=== PATIENT | female | born 1980 | race African-American/Black ===

== ENCOUNTER 2017-12-18 12:23 | Emergency (ER) | payer SELFPAY ==
[~2017-12-18] VITALS: Ht 170.2 cm; Wt 99.0 kg
[2017-12-18 13:10] VITALS: BP 123/86
[2017-12-18] MEDS: KETOROLAC 60 MG/2 ML VIAL IM ONE (15:18)
[2017-12-18 16:00] VITALS: BP 120/84
== END 2017-12-18 16:00 | disposition home or self-care (01) ==
LOC: MED 12:23 → EDBD 12:23 → MED 16:00
DX: M54.5 Low back pain (principal)
CPT/HCPCS: 81002; 81025; 96372; 99283; J1885

== ENCOUNTER 2019-01-01 18:03 | Emergency (ER) | payer SELFPAY ==
[~2019-01-01] VITALS: Ht 170.2 cm; Wt 97.5 kg
[2019-01-01 18:05] VITALS: BP 132/83
--- NOTE | 2019-01-01 18:13 | NUR ---
PT AMBULATED TO BED 7.
--- NOTE | 2019-01-01 18:28 | NUR ---
38 Y/O FEMALE PRESENTED WITH C/C OF ABD PAIN ; N/V/D X2 DAYS. PER PATIENT ABD PAIN IS 8/10 WITH A CRAMPING FEELING RADIATING TO THE BACK. PER PT NKA. NO MEDICAL HX. NO MEDICATIONS ON REGULAR BASIS. LAST ORAL INTAKE YESTERDAY 2200 HOURS TOLERATED WELL. BOWEL SOUNDS NORMOACTIVE. FAMILY AT BEDSIDE. SIDE RAIL X1.
[2019-01-01] MEDS ORDERED: NACL 0.9% 1,000 ML IV ONE (18:35)
[2019-01-01] MEDS ORDERED: KETOROLAC 30 MG/ML VIAL IVP ONE (18:35)
[2019-01-01] MEDS ORDERED: ONDANSETRON 4 MG/2 ML VIAL IVP ONE ×2 (18:35→19:55)
--- NOTE | 2019-01-01 18:40 | NUR ---
PT TAKEN TO XRAY VIA WHEELCHAIR
--- NOTE | 2019-01-01 18:49 | NUR ---
PT RETURNED FROM XRAY VIA WHEELCHAIR
--- NOTE | 2019-01-01 18:57 | NUR ---
PT AMBULATED TO THE RESTROOM
--- NOTE | 2019-01-01 19:05 | NUR ---
TORADOL AND ZOFRAN ADMINISTERED IVP. BOLUS STARTED
[2019-01-01 19:11] LABS: BASOPHILS % (AUTO) 0.3 % (0.0-2.0); EOSINOPHILS % (AUTO) 0.2 % (0.0-4.0); HEMATOCRIT 41.6 % (36-48); HEMOGLOBIN 13.7 g/dL (12.0-16.0); LYMPHOCYTES # (AUTO) 0.4 K/uL (2.5-16.5); MEAN CORPUSCULAR HEMOGLOBIN 31 pg (27-31); MEAN CORPUSCULAR HGB CONC 33 g/dL (33-37); MEAN CORPUSCULAR VOLUME 94.5 fL (80-94); MONOCYTES # (AUTO) 0.5 K/uL (0.8-1.0); MONOCYTES % (AUTO) 6.8 % (1.7-9.3); NEUTROPHILS # (AUTO) 6.3 K/uL (1.8-7.7); NEUTROPHILS % (AUTO) 87.7 % (42.2-75.2); PLATELET COUNT (AUTO) 293 K/uL (140-450); RED BLOOD CELL COUNT(AUTO) 4.41 MIL/uL (4.20-5.40); WHITE BLOOD COUNT (AUTO) 7.2 K/uL (4.8-10.8)
--- NOTE | 2019-01-01 19:13 | NUR ---
REPORT GIVEN TO FLAKITA
[2019-01-01 19:26] LABS: ANION GAP 16.1 (8-16); CARBON DIOXIDE 24.2 mmol/L (21-32); CREATININE 0.8 mg/dL (0.6-1.3); POTASSIUM 3.3 mmol/L (3.5-5.1)
[2019-01-01 19:32] LABS: TOTAL BILIRUBIN 1.7 mg/dL (0.0-1.0)
--- NOTE | 2019-01-01 19:51 | NUR ---
Dr. Torres examining patient.
[2019-01-01] MEDS ORDERED: MORPHINE SULFATE 4 MG/ML SYR IVP ONE (19:55)
[2019-01-01 20:45] VITALS: BP 132/83
--- NOTE | 2019-01-01 20:45 | NUR ---
PT DISCHARGED WITH PAPERWORK. RX NORCO, ZOFRAN, IMODIUM, MOTRIN. EDUCATED PT REGARDING MEDICATIONS AND S/E. EDUCATED PT REGARDING D/C DIAGNOSIS AND INSTRUCTIONS. PT VERBALIZED UNDERSTANDING OF TEACHING. TOLD PT TO FOLLOW UP WITH PCP AND WHEN TO RETURN TO ED. PT STABLE CONDITION AND RELIEF OF PAIN. ALL QUESTIONS ANSWERED.
--- NOTE | 2019-01-07 13:52 | NUR ---
Late entry. Confirmed with RN that 1000ml 0.9 NS IV completed at 2005
== END 2019-01-01 20:45 | disposition home or self-care (01) ==
LOC: MED 18:03
DX: R10.13 Epigastric pain (principal); R11.2 Nausea with vomiting, unspecified; R19.7 Diarrhea, unspecified; Z98.890 Other specified postprocedural states
CPT/HCPCS: 36415; 74022; 80053; 81002; 81025; 83690; 85025; 96361; 96374; 96375; 96376; 99284; J1885; J2270; J2405; J7030

== ENCOUNTER 2019-01-31 22:25 | Emergency (ER) | payer SELFPAY ==
[~2019-01-31] VITALS: Ht 172.7 cm; Wt 97.5 kg
[2019-01-31 22:27] VITALS: BP 121/74
--- NOTE | 2019-01-31 22:30 | NUR ---
TO LOBBY A/W BED AMBULATORY
--- NOTE | 2019-02-01 00:03 | NUR ---
PT WHEELCHAIRED TO ER BED 10
--- NOTE | 2019-02-01 00:15 | NUR ---
39 YEAR OLD FEMALE COMPLAINS OF SHARP 10/10 LEFT KNEE PAIN X 11 HOURS. PATIENT STATES SHE WAS HOLDING HEAVY ITEMS WHILE GOING UP A STAIRCASE AND THEN FELL DOWN. PATIENT DENIES HITTING HEAD. VISIBLE SWELLING ON LEFT KNEE AND REDNESS NOTED. NO VISIBLE LACERATION. PATIENT ALERT AND ORIENTED, BREATHING EVEN AND UNLABORED, SKIN WARM AND DRY. BED IN LOWEST POSITION, LOCKED, BED RAIL UPX1.
--- NOTE | 2019-02-01 00:17 | NUR ---
PATIENTS LEFT KNEE ELEVATED, ICE PLACED ON KNEE
--- NOTE | 2019-02-01 00:56 | NUR ---
PATIENT ALERT AND ORIENTED, BREATHING EVEN AND UNLABORED, WILL CONTINUE TO MONITOR.
[2019-02-01] MEDS ORDERED: KETOROLAC 60 MG/2 ML VIAL IM ONE (01:00)
--- NOTE | 2019-02-01 01:03 | NUR ---
PT L KNEE WRAPPED WITH CHANA WRAP. +CSM
[2019-02-01 01:09] VITALS: BP 121/74
--- NOTE | 2019-02-01 01:10 | NUR ---
PT GIVEN INSTRUCTION ON PROPER USE OF CRUTCHES. CRUTCHES FITTED TO PT HEIGHT AND ARM LENGTH. PT GIVEN INSTRUCTION ON SITTING TO STANDING AND VICE VERSA, ASCENDING/ DESCENDING STAIRS, AND WALKING. PT DEMONSTRATED SAFE USE FOR APPROXIMATELY 40 FEET, PT STATED SHE FELT COMFORTABLE WITH USE.
--- NOTE | 2019-02-01 01:13 | NUR ---
DISCHARGE DONE BY DR DUMONT. Patient discharged with v/s stable. Written and verbal after care instructions ABOUT BRIEF KNEE SPRAIN given and explained. Patient alert, oriented and verbalized understanding of instructions. Ambulatory with steady gait. All questions addressed prior to discharge. ID band removed. Patient advised to follow up with PMD. Rx of NAPROSYN given. Patient educated on indication of medication including possible reaction and side effects. Opportunity to ask questions provided and answered.
== END 2019-02-01 01:09 | disposition home or self-care (01) ==
LOC: MED 22:25
DX: S83.92XA Sprain of unspecified site of left knee, initial encounter (principal); W10.9XXA Fall (on) (from) unspecified stairs and steps, initial encounter; Y93.89 Activity, other specified; Y92.89 Other specified places as the place of occurrence of the external cause; Y99.8 Other external cause status
CPT/HCPCS: 73562; 96372; 99283; J1885

== ENCOUNTER 2019-04-06 01:31 | Emergency (ER) | payer SELFPAY ==
[~2019-04-06] VITALS: Ht 170.2 cm; Wt 49.9 kg
--- NOTE | 2019-04-06 01:31 | NUR ---
ARABELLA WATSON ALS TO ER BED 06
[2019-04-06 01:40] VITALS: BP 154/92
--- NOTE | 2019-04-06 01:40 | NUR ---
PT BIBA D/T MULTIPLE LACERATIONS TO BI HANDS/ HEMATOMA TO LT FOREHEAD WITH SWELLING. NEURO CHECKS WNL. PERRL. A/O X4. NO FOREIGN BODY VISUALIZED IN LACERATIONS. HISTORY LIMITED DUE TO ETOH CONSUMPTION. PMH-NONE. MEDS TAKEN- NONE NKA.
[2019-04-06] MEDS ORDERED: LIDOCAINE/EPI 1% 1:100000 20 ML VIAL INJ ONE ×2 (02:34→02:35)
--- NOTE | 2019-04-06 02:45 | NUR ---
ERMD AT BEDSIDE AT THIS TIME.
[2019-04-06] MEDS ORDERED: BACITRACIN OINT 500 UNITS/GM PKT TP ONE ×2 (02:59→03:00)
--- NOTE | 2019-04-06 03:04 | NUR ---
TECH AT BEDSIDE DOING WOUND CARE TO BI HAND LACERATIONS.
--- NOTE | 2019-04-06 03:04 | NUR ---
PT WOUNDS ON R 5TH FINGER AND L 4TH FINGER COVERED WITH NON ADHERENT DRESSING AND WRAPPED WITH COFLEX AFTER BACITRACIN APPLIED. PER REQUEST FROM DR JONES, PT FINGERS SPLINTED WITH FROG SPLINTS.
--- NOTE | 2019-04-06 03:06 | NUR ---
Patient discharged with v/s stable. Written and verbal after care instructions given and explained. Patient alert, oriented and verbalized understanding of instructions. Ambulatory with steady gait. All questions addressed prior to discharge. ID band removed. Patient advised to follow up with PMD. Rx of NORCO, CIPRO given. Patient educated on indication of medication including possible reaction and side effects. Opportunity to ask questions provided and answered.
== END 2019-04-06 03:15 | disposition home or self-care (01) ==
LOC: MED 01:31
DX: S61.411A Laceration without foreign body of right hand, initial encounter (principal); S61.412A Laceration without foreign body of left hand, initial encounter; X58.XXXA Exposure to other specified factors, initial encounter; Y93.89 Activity, other specified; Y92.89 Other specified places as the place of occurrence of the external cause; Y99.8 Other external cause status
CPT/HCPCS: 12002; 99283; J2001

== ENCOUNTER 2019-04-07 00:46 | Emergency (ER) | payer SELFPAY ==
[~2019-04-07] VITALS: Ht 170.2 cm; Wt 95.3 kg
[2019-04-07 00:50] VITALS: BP 145/80
--- NOTE | 2019-04-07 00:50 | NUR ---
PT TO BED #4
--- NOTE | 2019-04-07 00:55 | NUR ---
PT 39 Y/O FEMALE BIB SELF FOR A RECHECK STICHES FOR L RING FINGER AND R PINKY FINGER. PT STATES SHE FEELS PAIN AT BOTH SITES 7/10 THROBING. CMS INTACT. CAP REFILL <3. NO REDNESS, SWELLING, OR DRAINAGE NOTED. SKIN IS WARM TO TOUCH. AFEBRILE. RESPIRATIONS ARE EVEN AND UNLABORED. SKIN IS WARM AND DRY TO TOUCH. PT BED LOCKED AND IN LOWEST POSITION. MEDHX: NONE ALLERGIES: NKA
--- NOTE | 2019-04-07 01:15 | NUR ---
DR. JONES AT BEDSIDE.
[2019-04-07] MEDS ORDERED: BACITRACIN OINT 500 UNITS/GM PKT TP STA (02:06)
--- NOTE | 2019-04-07 02:13 | NUR ---
BACITRACIN OINTMENT GIVEN TO KERI MARIE FOR WOUND CARE.
--- NOTE | 2019-04-07 02:20 | NUR ---
KERI MARIE PERFORMED WOUND DRESSING AT BEDSIDE. PT TOLERATED WELL. CMS INTACT CAP REFILL <3. PT STATES PAIN 5/10 BUT IS"TOLERABLE." PT DENIES NUBMNESS AND TINGLING.
[2019-04-07 02:30] VITALS: BP 138/82
--- NOTE | 2019-04-07 02:30 | NUR ---
Patient discharged with v/s stable. Written and verbal after care instructions given and explained. Patient verbalized understanding. Ambulatory with steady gait. All questions addressed prior to discharge. Advised to follow up with PMD.
== END 2019-04-07 02:30 | disposition home or self-care (01) ==
LOC: MED 00:46
DX: S61.412D Laceration without foreign body of left hand, subsequent encounter (principal); S61.411D Laceration without foreign body of right hand, subsequent encounter; X58.XXXD Exposure to other specified factors, subsequent encounter
CPT/HCPCS: 99283

== ENCOUNTER 2019-04-21 16:43 | Emergency (ER) | payer SELFPAY ==
[~2019-04-21] VITALS: Ht 172.7 cm; Wt 98.4 kg
--- NOTE | 2019-04-21 16:48 | NUR ---
Patient ambulated to bed 7
--- NOTE | 2019-04-21 16:50 | NUR ---
39 Y/O FEMALE ARRIVED AT ED FOR SUTURE REMOVAL, SUTURES WERE PLACED ON 04/06/2019. PT DENIES ANY OTHER ISSUES AT THIS TIME DENIES N/V/D; SKIN IS PINK/WARM/DRY; AAOX4 WITH EVEN AND STEADY GAIT;RR EVEN AND UNLABORED; PT DENIES ANY FEVER, CP, SOB, OR COUGH AT THIS TIME; PATIENT STATES PAIN OF 0/10 AT THIS TIME; VSS; PATIENT POSITIONED FOR COMFORT; HOB ELEVATED; BEDRAILS UP X1; BED DOWN AND WHEELS LOCKED. MEDICAL HX: DENIES NKA
[2019-04-21 16:51] VITALS: BP 130/72
--- NOTE | 2019-04-21 16:52 | NUR ---
SUTURE REMOVAL KIT PLACED AT BEDSIDE
--- NOTE | 2019-04-21 16:53 | NUR ---
AT BEDSIDE EXAMINING PT
[2019-04-21 17:06] VITALS: BP 130/72
== END 2019-04-21 17:06 | disposition home or self-care (01) ==
LOC: MED 16:43
DX: S61.216D Laceration without foreign body of right little finger without damage to nail, subsequent encounter (principal); S61.215D Laceration without foreign body of left ring finger without damage to nail, subsequent encounter; X58.XXXD Exposure to other specified factors, subsequent encounter
CPT/HCPCS: 99281

== ENCOUNTER 2021-06-23 07:47 | Emergency (ER) | payer OTHER ==
[~2021-06-23] VITALS: Ht 172.7 cm; Wt 88.1 kg
[2021-06-23 07:53] VITALS: BP 110/73
[2021-06-23] MEDS: ONDANSETRON 4 MG/2 ML VIAL IVP ONE (08:22)
[2021-06-23] MEDS: KETOROLAC 30 MG/ML VIAL IVP ONE (08:23)
[2021-06-23] MEDS: NACL 0.9% 1,000 ML IV ONE (08:24)
[2021-06-23 08:33] LABS: BASOPHILS % (AUTO) 0.5 % (0.0-2.0); EOSINOPHILS # (AUTO) 0.2 K/uL (0-0.4); EOSINOPHILS % (AUTO) 2.2 % (0.0-4.0); HEMATOCRIT 39.1 % (36-48); HEMOGLOBIN 13.1 g/dL (12.0-16.0); LYMPHOCYTES # (AUTO) 1.4 K/uL (2.5-16.5); LYMPHOCYTES % (AUTO) 14.2 % (20.5-51.1); MEAN CORPUSCULAR HEMOGLOBIN 30 pg (27-31); MEAN CORPUSCULAR HGB CONC 34 g/dL (33-37); MEAN CORPUSCULAR VOLUME 89.9 fL (80-94); MONOCYTES # (AUTO) 0.8 K/uL (0.8-1.0); MONOCYTES % (AUTO) 7.8 % (1.7-9.3); NEUTROPHILS # (AUTO) 7.6 K/uL (1.8-7.7); NEUTROPHILS % (AUTO) 75.3 % (42.2-75.2); PLATELET COUNT (AUTO) 289 K/uL (140-450); RED BLOOD CELL COUNT(AUTO) 4.35 MIL/uL (4.20-5.40); RED CELL DISTRIBUTION WIDTH 13.3 % (11.6-13.7); WHITE BLOOD COUNT (AUTO) 10.1 K/uL (4.8-10.8)
[2021-06-23 08:45] LABS: ALBUMIN 3.6 g/dL (3.4-5.0); ANION GAP 11.6 (8-16); CARBON DIOXIDE 24.1 mmol/L (21-32); CREATININE 0.7 mg/dL (0.6-1.3); POTASSIUM 3.7 mmol/L (3.5-5.1); TOTAL BILIRUBIN 0.8 mg/dL (0.0-1.0)
[2021-06-23] MEDS ORDERED: ACET-8386 PO (09:54)
[2021-06-23] MEDS ORDERED: ONDA-188 PO (09:54)
[2021-06-23 10:03] VITALS: BP 110/73
== END 2021-06-23 10:04 | disposition home or self-care (01) ==
LOC: MED 07:47
DX: K80.20 Calculus of gallbladder without cholecystitis without obstruction (principal); Z98.890 Other specified postprocedural states; Z79.899 Other long term (current) drug therapy; Z79.891 Long term (current) use of opiate analgesic
CPT/HCPCS: 36415; 76705; 80053; 81002; 81025; 83690; 85025; 96361; 96374; 96375; 99284; J1885; J2405; J7030; Q0092

== ENCOUNTER 2021-09-26 18:50 | Emergency (ER) | payer OTHER ==
[~2021-09-26] VITALS: Ht 170.2 cm; Wt 84.4 kg
[~2021-09-26 18:50] MED LIST: ACET-8386 PO; ONDA-188 PO
[2021-09-26 18:55] VITALS: BP 126/72
--- NOTE | 2021-09-26 19:00 | NUR ---
DENA. HANDED ON URINE CUP.
[2021-09-26] MEDS ORDERED: MORPHINE SULFATE 4 MG/ML SYR IVP ONE ×2 (19:10→21:10)
[2021-09-26] MEDS ORDERED: NACL 0.9% 1,000 ML IV ONE (19:10)
[2021-09-26] MEDS ORDERED: ONDANSETRON 4 MG/2 ML VIAL IVP ONE (19:10)
[2021-09-26 19:32] LABS: BASOPHILS % (AUTO) 0.3 % (0.0-2.0); EOSINOPHILS # (AUTO) 0.2 K/uL (0-0.4); EOSINOPHILS % (AUTO) 1.5 % (0.0-4.0); HEMATOCRIT 36.8 % (36-48); HEMOGLOBIN 12.3 g/dL (12.0-16.0); LYMPHOCYTES # (AUTO) 1.4 K/uL (2.5-16.5); LYMPHOCYTES % (AUTO) 13.7 % (20.5-51.1); MEAN CORPUSCULAR HEMOGLOBIN 31 pg (27-31); MEAN CORPUSCULAR HGB CONC 34 g/dL (33-37); MEAN CORPUSCULAR VOLUME 91.1 fL (80-94); MONOCYTES # (AUTO) 0.9 K/uL (0.8-1.0); MONOCYTES % (AUTO) 8.7 % (1.7-9.3); NEUTROPHILS # (AUTO) 7.8 K/uL (1.8-7.7); NEUTROPHILS % (AUTO) 75.8 % (42.2-75.2); PLATELET COUNT (AUTO) 327 K/uL (140-450); RED BLOOD CELL COUNT(AUTO) 4.04 MIL/uL (4.20-5.40); RED CELL DISTRIBUTION WIDTH 13.9 % (11.6-13.7); WHITE BLOOD COUNT (AUTO) 10.3 K/uL (4.8-10.8)
--- NOTE | 2021-09-26 19:40 | NUR ---
41 Y/O FEMALE BIBS FROM HOME, C/O DIFFUSE UPPER ABD PAIN X3 DAYS. PT STATES SHE HAS THE PAIN OFTEN BUT USUALLY ONLY LASTS 30 MINUTES. THIS TIME IT HAS BEEN 3 DAYS OF CONSTANT, SHARP, RADIATING TO BACK, 10/10 PAIN. PT HAS LOSS OF APETITE AND N/V. SKIN IS PINK/WARM/DRY. A/OX4, UNLABORED BREATHING, AMBULATORY. HX: GALLSTONES NKA MEDS: CONTROL
--- NOTE | 2021-09-26 19:59 | NUR ---
ultrasound at bedside
[2021-09-26 20:16] LABS: ALBUMIN 3.4 g/dL (3.4-5.0); ANION GAP 9.9 (8-16); CARBON DIOXIDE 26.1 mmol/L (21-32); TOTAL BILIRUBIN 2.5 mg/dL (0.0-1.0)
[2021-09-26 21:10] LABS: APPEARANCE,URINE CLEAR (CLEAR); BILIRUBIN,URINE 2+ (NEGATIVE); BLOOD, URINE NEGATIVE (NEGATIVE); COLOR,URINE AMBER (YELLOW); LEUKOCYTE ESTERASE ,URINE NEGATIVE (NEGATIVE); NITRITE, URINE NEGATIVE (NEGATIVE); UGLUCOSE TRACE (NEGATIVE)
--- NOTE | 2021-09-26 21:28 | NUR ---
ER AT BEDSIDE
[2021-09-26] MEDS ORDERED: cefTRIAXone 1,000 MG VIAL ONE (21:29)
--- NOTE | 2021-09-26 21:46 | NUR ---
COVID/SAHRA SWAB COLLECTED AND WALKED TO LAB
--- NOTE | 2021-09-26 22:20 | NUR ---
PT TAKEN TO CT
--- NOTE | 2021-09-26 22:20 | NUR ---
PT TAKEN TO CT
--- NOTE | 2021-09-26 22:28 | NUR ---
PT RETURN FROM CT
[2021-09-26 23:16] LABS: ALBUMIN 3.2 g/dL (3.4-5.0); ANION GAP 10.9 (8-16); CARBON DIOXIDE 26.3 mmol/L (21-32); CREATININE 0.8 mg/dL (0.6-1.3); POTASSIUM 4.2 mmol/L (3.5-5.1); TOTAL BILIRUBIN 2.9 mg/dL (0.0-1.0)
[2021-09-27] MEDS ORDERED: MORPHINE SULFATE 4 MG/ML SYR IVP ONE (03:20)
--- NOTE | 2021-09-27 07:17 | NUR ---
Pt report given to RITESH MIR. Transfer of care at this time.
--- NOTE | 2021-09-27 07:25 | NUR ---
RECEIVED REPORT FROM RITESH JUNIOR. ASSUMED CARE AT THIS TIME, PATIENT RESTING IN BED WITH EYES OPEN, PATIENT ON BEDSIDE COREMAKER BENCH, ALL NEEDS MET AT THIS TIME.
--- NOTE | 2021-09-27 07:42 | NUR ---
[facility] crew arrived for transportation.
[2021-09-27 07:50] VITALS: BP 135/92
--- NOTE | 2021-09-27 07:50 | NUR ---
Patient to be transferred to [facility]. Is being transferred due to NEED OF MRI. Receiving facility has accepting physician and available space. ER physician has signed transfer form. Patient or responsible green party has agreed to transfer and signed form. Patient belongings inventoried and will be sent with patient. Copy of nursing notes, lab reports, Physicians Orders and X-rays to be sent with patient. Report called to PIPER at receiving facility. [facility] ambulance service has been called for transfer. [facility] BEDSIDE WITH PATIENT FOR TRANSPORT.
== END 2021-09-27 07:52 | disposition short-term general hospital (02) ==
LOC: MED 18:50
DX: K81.9 Cholecystitis, unspecified (principal); Z20.822 Contact with and (suspected) exposure to COVID-19; E80.7 Disorder of bilirubin metabolism, unspecified
CPT/HCPCS: 36415; 74176; 76705; 80053; 81003; 81025; 84702; 85025; 87040; 87426; 96361; 96365; 96375; 96376; 99285; J0696; J2270; J2405; J7030; Q0092

== ENCOUNTER 2022-05-14 06:58 | Emergency (ER) | payer OTHER ==
[~2022-05-14] VITALS: Ht 172.7 cm; Wt 89.8 kg
[2022-05-14] MEDS ORDERED: ONDANSETRON 4 MG/2 ML VIAL IVP ONE (07:40)
[2022-05-14 08:21] LABS: BASOPHILS % (AUTO) 0.2 % (0.0-2.0); EOSINOPHILS # (AUTO) 0.3 K/uL (0-0.4); EOSINOPHILS % (AUTO) 4.6 % (0.0-4.0); HEMATOCRIT 38.8 % (36-48); HEMOGLOBIN 12.9 g/dL (12.0-16.0); LYMPHOCYTES # (AUTO) 1.7 K/uL (2.5-16.5); LYMPHOCYTES % (AUTO) 23.2 % (20.5-51.1); MEAN CORPUSCULAR HEMOGLOBIN 31 pg (27-31); MEAN CORPUSCULAR HGB CONC 33 g/dL (33-37); MEAN CORPUSCULAR VOLUME 92.8 fL (80-94); MONOCYTES # (AUTO) 0.4 K/uL (0.8-1.0); MONOCYTES % (AUTO) 5.5 % (1.7-9.3); NEUTROPHILS % (AUTO) 66.5 % (42.2-75.2); PLATELET COUNT (AUTO) 313 K/uL (140-450); RED BLOOD CELL COUNT(AUTO) 4.18 MIL/uL (4.20-5.40); RED CELL DISTRIBUTION WIDTH 13.5 % (11.6-13.7); WHITE BLOOD COUNT (AUTO) 7.5 K/uL (4.8-10.8)
[2022-05-14] MEDS ORDERED: KETOROLAC 15 MG/ML VIAL IVP ONE (08:30)
--- NOTE | 2022-05-14 08:30 | NUR ---
HERE FOR ABD PAIN AND N/V, MEDICATED W ZOFRAN ORDERED, O2 SAT 98% RA, SR UP DAISY 2, SOFT ABD, EPIG TENDERNESS
[2022-05-14 08:33] LABS: ALBUMIN 3.5 g/dL (3.4-5.0); ANION GAP 13.1 (8-16); CARBON DIOXIDE 25.6 mmol/L (21-32); CREATININE 0.8 mg/dL (0.6-1.3); POTASSIUM 3.7 mmol/L (3.5-5.1); TOTAL BILIRUBIN 0.6 mg/dL (0.0-1.0)
[2022-05-14] MEDS ORDERED: KETOROLAC 15 MG/ML VIAL ONE (08:35)
--- NOTE | 2022-05-14 09:10 | NUR ---
a/o times 4, nad, abd pain /, no n/v, o2 sat 99% ra, sr up times 2
[2022-05-14 09:55] VITALS: BP 135/82
== END 2022-05-14 09:55 | disposition home or self-care (01) ==
LOC: MED 06:58
DX: R11.2 Nausea with vomiting, unspecified (principal)
CPT/HCPCS: 36415; 80053; 83690; 84703; 85025; 96374; 96375; 99284; J1885; J2405

== ENCOUNTER 2022-11-28 19:36 | Emergency (ER) | payer OTHER ==
[~2022-11-28] VITALS: Ht 170.2 cm; Wt 88.5 kg
[2022-11-28 19:45] VITALS: BP 126/78; PULSE 77; RESP 17; TEMP 98.3; O2SAT 100
[2022-11-28 20:07] LABS: APPEARANCE,URINE CLEAR (CLEAR); BILIRUBIN,URINE NEGATIVE (NEGATIVE); BLOOD, URINE TRACE-I (NEGATIVE); COLOR,URINE YELLOW (YELLOW); LEUKOCYTE ESTERASE ,URINE NEGATIVE (NEGATIVE); NITRITE, URINE NEGATIVE (NEGATIVE); PH,URINE 5.5 (5.0-9.0); PROTEIN,URINE NEGATIVE (NEGATIVE); UGLUCOSE NEGATIVE (NEGATIVE); UROBILINOGEN,URINE 0.2 EU/dL (0.2 - 1)
[2022-11-28 20:19] LABS: BACTERIA,URINE FEW /HPF (None Seen); RBC,URINE 0-5 /HPF (0-5); SQUAMOUS EPITHELIAL CELL,UR 0-3 (FEW) /LPF (0-3 (FEW)); WBC,URINE 0-5 /HPF (0-5)
[2022-11-28] MEDS ORDERED: KETOROLAC 30 MG/ML VIAL IVP ONE (20:50)
[2022-11-28] MEDS ORDERED: ONDANSETRON 4 MG/2 ML VIAL IVP ONE (20:50)
[2022-11-28] MEDS ORDERED: NACL 0.9% 1,000 ML IV ONE (20:55)
[2022-11-28 21:15] VITALS: BP 141/76; PULSE 81; RESP 15; O2SAT 99
[2022-11-28 21:22] LABS: BASOPHILS % (AUTO) 0.1 % (0.0-2.0); HEMATOCRIT 46.2 % (36-48); HEMOGLOBIN 15.4 g/dL (12.0-16.0); LYMPHOCYTES # (AUTO) 0.4 K/uL (2.5-16.5); LYMPHOCYTES % (AUTO) 6.9 % (20.5-51.1); MEAN CORPUSCULAR HEMOGLOBIN 30 pg (27-31); MEAN CORPUSCULAR HGB CONC 34 g/dL (33-37); MONOCYTES # (AUTO) 0.4 K/uL (0.8-1.0); MONOCYTES % (AUTO) 6.3 % (1.7-9.3); NEUTROPHILS # (AUTO) 5.3 K/uL (1.8-7.7); NEUTROPHILS % (AUTO) 86.7 % (42.2-75.2); PLATELET COUNT (AUTO) 335 K/uL (140-450); RED BLOOD CELL COUNT(AUTO) 5.07 MIL/uL (4.20-5.40); RED CELL DISTRIBUTION WIDTH 13.4 % (11.6-13.7); WHITE BLOOD COUNT (AUTO) 6.2 K/uL (4.8-10.8)
[2022-11-28 21:34] LABS: ALBUMIN 4.6 g/dL (3.4-5.0); ANION GAP 14.7 (8-16); CALCIUM 9.7 mg/dL (8.5-10.1); CARBON DIOXIDE 27.1 mmol/L (21-32); POTASSIUM 3.8 mmol/L (3.5-5.1); TOTAL PROTEIN, SERUM 9.7 g/dL (6.4-8.2)
[2022-11-28] MEDS ORDERED: MORPHINE SULFATE 4 MG/ML SYR IVP ONE (21:45)
[2022-11-28] MEDS ORDERED: fentaNYL citrate 0.05 MG/ML VIAL IVP ONE ×2 (22:25→23:35)
[2022-11-28] MEDS ORDERED: fentaNYL citrate 0.05 MG/ML VIAL ONE (23:29)
[2022-11-28] MEDS ORDERED: IBUP-2213 PO (23:41)
[2022-11-28] MEDS ORDERED: ACET-8905 PO (23:41)
[2022-11-28] MEDS ORDERED: OMEP40EC24 PO (23:41)
[2022-11-28] MEDS ORDERED: ONDA8TAB87 PO (23:41)
== END 2022-11-28 23:51 | disposition home or self-care (01) ==
LOC: MED 19:36
DX: R10.84 Generalized abdominal pain (principal); R11.0 Nausea; Z90.49 Acquired absence of other specified parts of digestive tract
CPT/HCPCS: 36415; 74176; 80053; 81001; 81025; 83690; 85025; 96361; 96374; 96375; 99285; J1885; J2270; J2405; J3010; J7030

== ENCOUNTER 2022-12-31 23:38 | Emergency (ER) | payer OTHER ==
[~2022-12-31] VITALS: Ht 172.7 cm; Wt 86.6 kg
[~2022-12-31 23:38] MED LIST changes: -ACET-8386 PO; +ACET-8905 PO; +IBUP-2213 PO; +OMEP40EC24 PO; -ONDA-188 PO; +ONDA8TAB87 PO
[2022-12-31 23:54] VITALS: BP 120/82; PULSE 55; RESP 16; TEMP 97.8; O2SAT 99
[2023-01-01] MEDS: ONDANSETRON 4 MG ODT PO ONE (01:49)
[2023-01-01] MEDS: KETOROLAC 60 MG/2 ML VIAL IM ONE (01:52)
[2023-01-01 03:44] LABS: FLU A ANTIGEN negative (NEGATIVE); FLU B ANTIGEN NEGATIVE (NEGATIVE)
[2023-01-01 04:20] LABS: APPEARANCE,URINE HAZY (CLEAR); BILIRUBIN,URINE 1+ (NEGATIVE); BLOOD, URINE NEGATIVE (NEGATIVE); COLOR,URINE YELLOW (YELLOW); LEUKOCYTE ESTERASE ,URINE NEGATIVE (NEGATIVE); NITRITE, URINE NEGATIVE (NEGATIVE); PROTEIN,URINE 1+ (NEGATIVE); UGLUCOSE NEGATIVE (NEGATIVE); UROBILINOGEN,URINE 0.2 EU/dL (0.2 - 1)
[2023-01-01 04:29] LABS: ICTOTEST NEGATIVE (NEGATIVE)
[2023-01-01 04:30] LABS: BACTERIA,URINE 1+ /HPF (None Seen); RBC,URINE 0-5 /HPF (0-5); SQUAMOUS EPITHELIAL CELL,UR 20-50 /LPF (0-3 (FEW)); WBC,URINE NONE SEEN /HPF (0-5)
[2023-01-01] MEDS: NACL 0.9% 1,000 ML IV ONE (04:44)
[2023-01-01] MEDS: METOCLOPRAMIDE 10 MG/2 ML INJ VIAL IVP ONE (04:45)
[2023-01-01 04:59] LABS: BASOPHILS % (AUTO) 0.1 % (0.0-2.0); EOSINOPHILS % (AUTO) 0.1 % (0.0-4.0); HEMATOCRIT 43.4 % (36-48); HEMOGLOBIN 14.6 g/dL (12.0-16.0); LYMPHOCYTES # (AUTO) 1.9 K/uL (2.5-16.5); MEAN CORPUSCULAR HEMOGLOBIN 31 pg (27-31); MEAN CORPUSCULAR HGB CONC 34 g/dL (33-37); MEAN CORPUSCULAR VOLUME 91.2 fL (80-94); MONOCYTES # (AUTO) 0.9 K/uL (0.8-1.0); MONOCYTES % (AUTO) 12.3 % (1.7-9.3); NEUTROPHILS # (AUTO) 4.4 K/uL (1.8-7.7); NEUTROPHILS % (AUTO) 61.5 % (42.2-75.2); PLATELET COUNT (AUTO) 310 K/uL (140-450); RED BLOOD CELL COUNT(AUTO) 4.76 MIL/uL (4.20-5.40); RED CELL DISTRIBUTION WIDTH 13.7 % (11.6-13.7); WHITE BLOOD COUNT (AUTO) 7.1 K/uL (4.8-10.8)
[2023-01-01 05:13] LABS: ANION GAP 12.1 (8-16); CALCIUM 9.4 mg/dL (8.5-10.1); CREATININE 0.9 mg/dL (0.6-1.3); POTASSIUM 4.1 mmol/L (3.5-5.1)
[2023-01-01] MEDS ORDERED: METO-486 PO (05:16)
== END 2023-01-01 05:20 | disposition home or self-care (01) ==
LOC: MED 23:38
DX: R11.2 Nausea with vomiting, unspecified (principal); Z20.822 Contact with and (suspected) exposure to COVID-19; Z32.02 Encounter for pregnancy test, result negative; Z79.899 Other long term (current) drug therapy; Z79.1 Long term (current) use of non-steroidal anti-inflammatories (NSAID)
CPT/HCPCS: 36415; 80048; 81001; 81025; 84703; 85025; 87426; 87804; 96361; 96372; 96374; 99284; J1885; J2765; J7030; Q0162

== ENCOUNTER 2023-04-18 14:51 | Emergency (ER) | payer OTHER ==
[~2023-04-18] VITALS: Ht 172.7 cm; Wt 87.1 kg
[~2023-04-18 14:51] MED LIST changes: +METO-486 PO
[2023-04-18 15:01] VITALS: BP 125/93; PULSE 87; RESP 18; TEMP 98.2; O2SAT 99
[2023-04-18 15:55] LABS: FLU A ANTIGEN negative (NEGATIVE); FLU B ANTIGEN NEGATIVE (NEGATIVE)
[2023-04-18 16:07] LABS: HEMATOCRIT 41.1 % (36-48); HEMOGLOBIN 13.8 g/dL (12.0-16.0); LYMPHOCYTES # (AUTO) 0.2 K/uL (2.5-16.5); LYMPHOCYTES % (AUTO) 3.2 % (20.5-51.1); MEAN CORPUSCULAR HEMOGLOBIN 30 pg (27-31); MEAN CORPUSCULAR HGB CONC 34 g/dL (33-37); MONOCYTES # (AUTO) 0.7 K/uL (0.8-1.0); MONOCYTES % (AUTO) 13.6 % (1.7-9.3); NEUTROPHILS # (AUTO) 4.6 K/uL (1.8-7.7); NEUTROPHILS % (AUTO) 83.2 % (42.2-75.2); PLATELET COUNT (AUTO) 296 K/uL (140-450); RED BLOOD CELL COUNT(AUTO) 4.62 MIL/uL (4.20-5.40); RED CELL DISTRIBUTION WIDTH 13.9 % (11.6-13.7); WHITE BLOOD COUNT (AUTO) 5.5 K/uL (4.8-10.8)
[2023-04-18 16:08] LABS: APPEARANCE,URINE CLEAR (CLEAR); BILIRUBIN,URINE NEGATIVE (NEGATIVE); BLOOD, URINE NEGATIVE (NEGATIVE); COLOR,URINE YELLOW (YELLOW); LEUKOCYTE ESTERASE ,URINE NEGATIVE (NEGATIVE); NITRITE, URINE NEGATIVE (NEGATIVE); PROTEIN,URINE NEGATIVE (NEGATIVE); UGLUCOSE NEGATIVE (NEGATIVE); UROBILINOGEN,URINE 0.2 EU/dL (0.2 - 1)
[2023-04-18] MEDS: NACL 0.9% 1,000 ML IV ONE (16:09)
[2023-04-18] MEDS: KETOROLAC 30 MG/ML VIAL IVP ONE (16:17)
[2023-04-18 16:22] LABS: ANION GAP 10.8 (8-16); CALCIUM 9.2 mg/dL (8.5-10.1); CREATININE 0.8 mg/dL (0.6-1.3); POTASSIUM 3.8 mmol/L (3.5-5.1)
[2023-04-18 16:26] LABS: ALANINE AMINOTRANSFERASE 16 U/L (12-78); ALBUMIN 3.7 g/dL (3.4-5.0); ALKALINE PHOSPHATASE 90 U/L (50-136); CREATINE KINASE, TOTAL 230 U/L (26-192); LIPASE 25 U/L (16-77); TOTAL BILIRUBIN 1.3 mg/dL (0.0-1.0)
[2023-04-18] MEDS: HYDROcodone/APAP 5/325 MG 1 TAB TAB PO ONE (16:33)
[2023-04-18 16:40] LABS: ASPARTATE AMINOTRANSFERASE 54 U/L (15-37); BILIRUBIN,DIRECT 0.1 mg/dL (0.0-0.3)
[2023-04-18] MEDS ORDERED: ACET-8905 PO (17:10)
== END 2023-04-18 17:28 | disposition home or self-care (01) ==
LOC: MED 14:51
DX: M79.10 Myalgia, unspecified site (principal); Z20.822 Contact with and (suspected) exposure to COVID-19
CPT/HCPCS: 36415; 80048; 80076; 81003; 81025; 82550; 82553; 83690; 85025; 87426; 87804; 96361; 96374; 99283; J1885; J7030